=== PATIENT | female | born 1985 | race Caucasian/White ===

== ENCOUNTER → 2016-08-26 | Outpatient (CLI) | payer BC ==
--- NOTE | 2016-08-26 10:03 | RAD ---
EXAM DESCRIPTION: XR FINGERS CLINICAL HISTORY: 31 y/o ,F, GANGLION COMPARISON: None. IMPRESSION: Three views of the 4th digit of left hand. No fracture. No osseous lesion. No radiopaque foreign body. Electronically signed by: Bj Gupta MD 08/26/2016 10:02
== END ==
LOC: RAD 08:12
PROVIDERS: ATTEND Orthopaedic Surgery
DX: M67.40 Ganglion, unspecified site (principal)

== ENCOUNTER → 2016-09-23 | Outpatient (CLI) | payer BC | END | disposition home or self-care (01) | LOC: RESP 13:16 | PROVIDERS: ATTEND Orthopaedic Surgery | DX: Z01.818 Encounter for other preprocedural examination (principal) ==

== ENCOUNTER 2016-10-09 05:58 | Day surgery (SDC) | payer BC ==
--- NOTE | 2016-10-07 09:18 | HP ---
CHIEF COMPLAINT: Left fourth finger mass. HISTORY OF PRESENT ILLNESS: Neha is a 31-year-old female with a history of a mass on the dorsum of the left fourth digit. She has had this going on for a while. Although there is no local pain, it does bother her from a cosmetic standpoint and pain when she bumps it. She has had no trauma related to the onset of this, denies any radiation of pain or neurologic symptoms. Because of the presence of the mass, she has requested excision with biopsy. After discussing the risks, benefits and alternatives to that, the patient has given informed consent. PAST SURGICAL HISTORY: None. MEDICATIONS: None. ALLERGIES: NO KNOWN DRUG ALLERGIES. CODE STATUS: Full code. IMMUNIZATIONS: Up to date. SOCIAL HISTORY: The patient does not drink or use any illicit drugs. She does smoke on occasion. FAMILY HISTORY: None pertinent to today's complaint. REVIEW OF SYSTEMS: Negative except as indicated in the History of Present Illness. PHYSICAL EXAMINATION: VITAL SIGNS: Blood pressure 137/91. Pulse 87. Height 5'5". Weight 191. MENTAL STATUS: The patient is awake, alert, and is able to give a good history and participate in the physical. The patient is oriented to person, place and time. SKIN: Normal tone and turgor. HEENT: Normocephalic, atraumatic. Pupils equal, round and reactive. Mucosal membranes are moist. NECK: Normal range of motion. No thyromegaly, no lymphadenopathy. CHEST: Normal respiratory excursion. CARDIAC: Regular rate and rhythm. No murmurs, rubs or gallops. MUSCULOSKELETAL: She has about a 3 to 4 mm nodular swelling over the dorsum of the PIP joint of the fourth digit. It does not move with tendon excursion. There is no overlying erythema. It does not appear to be affixed to the overlying skin. It is firm in nature without any crepitus. IMAGING: X-rays show no acute bony abnormality. ASSESSMENT: 1. Benign mass of the finger. PLAN: The plan at this point is for excision with biopsy. We have discussed the risks, benefits, and alternatives to that and the patient has given informed consent. #[id number] [facility]
[2016-10-09] MEDS ORDERED: SODIUM CHL 0.9% 100ML MINI-BAG 100 ML IVPB ONE (05:59)
[2016-10-09] MEDS ORDERED: ceFAZolin SODIUM 1 GM VIAL ONE ×2 (05:59→06:27)
[2016-10-09] MEDS ORDERED: LACTATED RINGERS 1,000 ML ONE (05:59)
[2016-10-09] MEDS ORDERED: BUPIVACAINE 0.25% INJ 30 ML VIAL INJ ONE (06:26)
[2016-10-09] MEDS ORDERED: LIDOCAINE 1% 50 ML VIAL INJ ONE (06:26)
[2016-10-09] MEDS ORDERED: VANCOMYCIN HCL INJ 1,000 MG VIAL IVPB ONE (06:27)
[2016-10-09] MEDS ORDERED: MIDAZOLAM INJ 5 MG/5 ML VIAL ONE (06:49)
[2016-10-09] MEDS ORDERED: fentaNYL CITRATE INJ 50 MCG/ML AMP ONE (06:49)
[2016-10-09 08:34] VITALS: O2SAT 94
[2016-10-09 09:47] VITALS: BP 115/78; TEMP 98.3
[2016-10-09] MEDS ORDERED: LIDOCAINE 1% 10 ML VIAL INJ ONE (12:00)
[2016-10-09] MEDS ORDERED: PROPOFOL 200 MG/20 ML VIAL IV ONE (12:00)
[2016-10-09] MEDS ORDERED: raNITIdine HCL INJ 25 MG/ML VIAL IV ONE (12:00)
[2016-10-09] MEDS ORDERED: DEXAMETHASONE INJ 10 MG/ML VIAL IV ONE (12:00)
[2016-10-09] MEDS ORDERED: METOCLOPRAMIDE HCL INJ 10 MG/2 ML VIAL IV ONE (12:00)
--- NOTE | 2016-10-29 09:31 | OP ---
DATE OF PROCEDURE: 10/09/16 PREOPERATIVE DIAGNOSIS: 1. Benign mass, left fourth digit overlying the proximal interphalangeal joint. POSTOPERATIVE DIAGNOSIS: 1. Ganglion cyst of the proximal interphalangeal joint. PROCEDURE: 1. Excision of the mass. SURGEON: René Ventura MD. FLAKE CUTTER OPERATOR: Patrice Thompson CST, SA-C. ANESTHESIA: General anesthesia. COMPLICATIONS: None. FINDINGS: Approximately 3 to 4 mm ganglion cyst overlying the dorsum of the proximal interphalangeal joint. INDICATION: Ms. Tuttle has history of a mass overlying the proximal interphalangeal joint as mentioned above. She has only minor pain, but did not like the cosmetic appearance of it. Because of that, we discussed options and she elected to undergo surgical intervention. After discussing the risks, benefits and alternatives to operative therapy, she gave informed consent. PROCEDURE: The patient was brought to the Operating Room and placed in supine position. General anesthesia was induced and the patient's hand was sterilely prepped and draped. After prepping and draping, a transverse incision in line with the skin creases was made directly overlying the mass. Blunt dissection was carried down to the mass which was identified. Care was taken to ensure no damage to the extensor tendon was made. The mass was isolated and its base identified. Following identification, the mass was totally removed. It was carried down to the level of extension from the IP joint. Care was taken to ensure there was no stalk remaining. Following that, the wound was thoroughly irrigated and the skin was closed overlying the area. Sterile dressings were placed. The patient was awoken from anesthesia and taken to Recovery. POSTOPERATIVE INSTRUCTIONS: The patient will followup with us in two days. We are going to limit her range of motion somewhat to ensure protection of the wound. #[id number] [facility]
== END 2016-10-09 09:40 | disposition home or self-care (01) ==
LOC: AMB 05:58
PROVIDERS: ATTEND Orthopaedic Surgery
DX: M67.442 Ganglion, left hand (principal); F17.200 Nicotine dependence, unspecified, uncomplicated
CPT/HCPCS: 01810; 26160; 81025; J0690; J1100; J2250; J2765; J2780; J3010; J3370; J3490; J7050; J7120

== ENCOUNTER → 2017-09-02 | Outpatient (CLI) | payer BC | LOC: LAB.O 10:20 | PROVIDERS: ATTEND Nurse Practitioner Family | DX: J02.9 Acute pharyngitis, unspecified (principal) ==

== ENCOUNTER → 2018-11-16 | Outpatient (CLI) | payer BC | LOC: LAB.O 12:31 | PROVIDERS: ATTEND Nurse Practitioner Family | DX: J03.90 Acute tonsillitis, unspecified (principal) ==

== ENCOUNTER → 2019-02-26 | Outpatient (CLI) | payer BC | LOC: LAB.O 09:28 | PROVIDERS: ATTEND Nurse Practitioner Family | DX: E02 Subclinical iodine-deficiency hypothyroidism (principal) ==

== ENCOUNTER → 2019-04-16 | Outpatient (CLI) | payer BC ==
--- NOTE | 2019-04-16 16:07 | US ---
EXAM DESCRIPTION: Soft Tissue,Head/Neck: ULTRASOUND. CLINICAL HISTORY: 33 years Female Enlarged lymph nodes. Mother with neck cancer. Probable mass overlying the left neck below the ear. COMPARISON: None Available. TECHNIQUE: Transcutaneous scanning: Patel-scale and Doppler modes. FINDINGS: Where the patient palpates a mass, is overlying the mastoid bili of the sternocleidomastoid muscle. Normal appearance of the muscle. Minimal subdermal hypoechoic density but no definite mass. No dominant solid mass or distinct cyst. No calcifications. Slightly more anterior and inferior, is a circumscribed hypoechoic mass measuring 2.5 x 0.9 x 0.9 cm with fatty hilum consistent with a lymph node. Nonvascular. This is immediately anterior to the right internal carotid artery above the bifurcation. No dominant solid mass distinct cyst or large calcification. IMPRESSION: 1. Palpable mass on the left neck may represent a small subdermal density but no definite mass or cyst. 2. 2.5 cm lymph node overlying the left ICA does not appear reactive. No cyst or calcifications. Electronically signed by: Patrice Bowser MD 04/16/2019 4:06 PM CDT
== END ==
LOC: US 12:59
PROVIDERS: ATTEND Nurse Practitioner Family
DX: R59.9 Enlarged lymph nodes, unspecified (principal)